=== PATIENT | male | born 1965 ===

== ENCOUNTER 2018-01-25 14:03 | Outpatient (CLI) | payer OTHER ==
[2018-01-25 14:26] LABS: URINE MICROSCOPIC INDICATED? YES; URINE SOURCE RANDOM
[2018-01-25 14:45] LABS: URINE BILIRUBIN NEGATIVE (NEGATIVE); URINE BLOOD NEGATIVE (NEGATIVE); URINE GLUCOSE (UA) NEGATIVE (NEGATIVE); URINE KETONE NEGATIVE (NEGATIVE); URINE LEUKOCYTE ESTERASE NEGATIVE (NEGATIVE); URINE NITRATE NEGATIVE (NEGATIVE); URINE PROTEIN NEGATIVE (NEGATIVE); URINE UROBILINOGEN 0.2 E.U./dL (0.2 - 1.0)
[2018-01-25 15:00] LABS: ALB/GLOB RATIO 1.7 (1.0-1.8); ALBUMIN 4.4 gm/dL (4.2-5.5); ALKALINE PHOSPHATASE 46 U/L (34-104); ANION GAP 7.7 (7.0-16.0); BILIRUBIN,TOTAL 0.6 mg/dL (0.3-1.0); BUN - UREA NITROGEN 14 mg/dL (7-25); CALCIUM SERUM 9.2 mg/dL (8.6-10.3); CARBON DIOXIDE 29.2 mEq/L (21.0-31.0); CHLORIDE 106 mEq/L (98-107); CHOLESTEROL 223 mg/dL (<200); CREATININE - SERUM 0.9 mg/dL (0.7-1.3); GFR AFRICAN-AMERICAN > 60.0 ml/min (>90); GFR NON AFRICAN-AMERICAN > 60.0 ml/min; GLUCOSE 94 mg/dL (70-105); HDL -HIGH DENSITY LIPOPROTEIN 42 mg/dL (23-92); POTASSIUM SERUM 3.9 mEq/L (3.5-5.1); SGOT 33 U/L (13-39); SGPT/ALT 65 U/L (7-52); SODIUM SERUM 139 mEq/L (136-145); TRIGLYCERIDES 139 mg/dL (<150)
[2018-01-25 15:02] LABS: URINE BACTERIA NONE SEEN /hpf (NONE SEEN); URINE CLARITY CLEAR (CLEAR); URINE COLOR YELLOW; URINE EPITHELIAL CELLS NONE SEEN /lpf (FEW); URINE RBC NONE SEEN /hpf (0-5); URINE WBC NONE SEEN /hpf (0-5)
[2018-01-25 15:10] LABS: HEMOGLOBIN 15.2 gm/dL (12-16); MEAN CELL VOLUME 88.4 fl (80-99); MEAN CORPUSCULAR HEMOGLOBIN 29.3 pg (26.0-30.0); MEAN CORPUSCULAR HGB CONC 33.1 pg (28.0-36.0)
[2018-01-25 15:11] LABS: % BASOPHILS 1.3 % (0.0-2.0); % EOSINOPHILS 4.3 % (0.0-5.0); % LYMPHOCYTES 52.9 % (20.0-50.0); % MONOCYTES 10.6 % (2.0-10.0); % NEUTROPHILS 30.9 % (40.0-80.0); LYMPHOCYTE ABSOLUTE 2.1 Th/cmm (1.5-3.0); MONOCYTE ABSOLUTE 0.4 Th/cmm (0.3-1.0); NEUTROPHILE ABSOLUTE 1.2 Th/cmm (1.8-8.0); PLATELET COUNT 231 Th/cmm (150-400); RED CELL DISTRIBUTION WIDTH 12.3 % (11.5-20.0)
[2018-01-25 15:12] LABS: BASOPHILE ABSOLUTE 0.1 Th/cumm (0-0.2); EOSINOPHILE ABSOLUTE 0.2 Th/cmm (0.1-0.4)
== END 2018-01-25 14:37 ==
LOC: EEVIPCON 14:03 → LAB 14:03
DX: I10 Essential (primary) hypertension (principal)
CPT/HCPCS: 36415-UA; 80053-TC; 80061-TC; 81001-TC; 82306-90; 83036-90; 84153-90; 84443-TC; 85025-TC